=== PATIENT | male | born 1980 | race Caucasian/White ===

== ENCOUNTER 2021-08-31 09:05 | Emergency (ER) | payer OTHER ==
[~2021-08-31] VITALS: Ht 180.3 cm; Wt 127.0 kg
[~2021-08-31 09:05] MED LIST: ACETAMINOPHEN-1 EAC1 PO; AMOXICILLIN500 M1 PO; AMPICILLIN TRI500 MG; AUGMENTIN 875875 MG PO; BACITRACIN-POLY30 GM TP; BENZONATATE100 MG; CHERATUSSIN DA480 ML PO; DOXYCYCLINE 10100 MG PO; HYDROCODON-ACE1 EAC7 PO; IBUPROFEN 800800 MG PO; MEDROLDOSEPACK PO; MEGA MULTI FOR1 EAC1 PO; NAPROSYN500 MG PO; NOHOMEMEDICATIONS; NORCO 5-325 TA1 EACH PO; OXYCODON-ACETA1 EAC1 PO; PERCOCET; PHENERGAN 25 MG25 M1 PO; PREDNISONE50 MG PO; SOMA250 MG PO; TESSALON PERLE100 MG PO; ULTRAM 50MG TAB50 MG PO; VALIUM5 MG PO; ZOFRAN ODT4 MG PO; ZPAK PO
[2021-08-31 11:20] LABS: ABSOLUTE LYMPHOCYTES 1.3 thou/uL (0.8-5.3); ABSOLUTE MONOCYTES 1.3 thou/uL (0.0-1.2); ABSOLUTE NEUTROPHILS 11.8 thou/uL (1.6-8.1); BASOPHILS 0.2 %; EOSINOPHILS 0.1 %; HEMATOCRIT 40.9 % (42.0-52.0); HEMOGLOBIN 13.8 gm/dL (14.0-18.0); MCH 28.4 pg (26.0-34.0); MCHC 33.7 g/dL (28.0-37.0); MCV 84.2 fL (80.0-100.0); MONOCYTES 9.2 %; MPV 7.1 fl. (7.2-11.1); NUCLEATED RBCS 0 /100WBC; PLATELET COUNT* 304 thou/uL (150-400); POLYS 81.5 %; RBC 4.85 mil/uL (4.50-6.00); RDW-CV 13.6 % (10.5-14.5); WBC 14.5 thou/uL (4.0-11.0)
[2021-08-31 11:44] LABS: ANION GAP 9 mmol/L (7-16); BUN 11 mg/dL (7-18); CALCIUM 8.3 mg/dL (8.5-10.1); CHLORIDE 99 mmol/L (98-107); CO2 25 mmol/L (21-32); CREATININE 0.9 mg/dL (0.6-1.3); GLUCOSE 98 mg/dL (70-99); POTASSIUM 3.9 mmol/L (3.5-5.1); SODIUM 133 mmol/L (136-145)
[2021-08-31 11:57] LABS: ALBUMIN 3.4 g/dL (3.4-5.0); ALKALINE PHOSPHATASE 77 U/L (46-116); NT-PRO BRAIN NAT PEPTIDE < 5 pg/mL (<300); SGOT 18 U/L (15-37); SGPT 27 U/L (30-65); TOTAL BILIRUBIN 0.7 mg/dL (<0.1-1.0); TOTAL PROTEIN 7.3 g/dL (6.4-8.2)
[2021-08-31] MEDS ORDERED: FLEXERIL PO (13:13)
[2021-08-31] MEDS ORDERED: NAPROSYN500 MG PO (13:13)
[2021-08-31] MEDS ORDERED: MEDROLDOSEPACK PO (13:13)
[2021-08-31] MEDS ORDERED: HYDROCODON-ACE1 EAC7 PO (13:14)
[2021-08-31 13:28] VITALS: BP 107/65
--- NOTE | 2021-08-31 15:33 | EKG ---
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
== END 2021-08-31 13:28 | disposition home or self-care (01) ==
LOC: M.ERS 09:05
PROVIDERS: Nurse Practitioner Family
DX: M54.59 Other low back pain (principal); R07.89 Other chest pain; Z88.2 Allergy status to sulfonamides; Z87.891 Personal history of nicotine dependence